=== PATIENT | female | born 1945 | race Caucasian/White ===

== ENCOUNTER 2016-08-29 05:58 | Day surgery (SDC) | payer MEDICARE ==
[2016-08-29] VITALS (13 sets, daily range): BP systolic 71–123; BP diastolic 38–66; PULSE 46–60; RESP 8–18; O2SAT 98–100
[~2016-08-29] VITALS: Ht 162.6 cm; Wt 58.3 kg
[~2016-08-29 05:58] MED LIST: ASPI-973 PO; ATRV10T PO; CALC-952 PO; CHOL200047 PO; ESTR42.52 VG; LISI1TAB7 PO; RANI300T4 PO; primidone
[2016-08-29] MEDS ORDERED: Dexamethasone 4 mg/mL Inj ONE (05:59)
[2016-08-29] MEDS ORDERED: MetoCLOpramide 5 mg/mL 2 mL Inj ONE (05:59)
[2016-08-29] MEDS ORDERED: fentaNYL-PF 50 mCg/mL 2 mL Inj ONE (05:59)
[2016-08-29] MEDS ORDERED: Propofol 10,000 mCg/mL 20 mL Inj ONE (05:59)
[2016-08-29] MEDS ORDERED: Ondansetron 2 mg/mL 2 mL Inj ONE (05:59)
[2016-08-29] MEDS: Lactated Ringer's 1,000 ML IV SCH ×3 (06:00→09:25)
--- NOTE | 2016-08-29 07:16 | PCM.HPANE ---
Patient Data Surgeon Admitting Provider: Attending Provider:Burt Hernandez MD Primary Care Physician:Cesar Lebron MD Other Provider:Anu Reevesingham Anesthesia Reason for Visit Left Flank Mass Ht/WT & BMI Height (Feet): 5 Height (Inches): 4.00 Weight (Kilograms): 58.3 Body Mass Index 21.00 Allergies Coded Allergies: nystatin (Verified Allergy, Unknown, 08/25/16) Uncoded Allergies: ADHESIVE BANDAGES (Allergy, Unknown, 08/25/16) CHLOROPRENE (Allergy, Unknown, 08/25/16) Past Anesthesia History Anesthesia History: Positive for:: Anesthesia Reactions (severe nausea after each procedure), Denies:: Abnormal Airway, Difficult Intubation, Fam Anesthesia Reaction Diabetes History Hx Diabetes?: No Current Bedside Blood Glucose: 98 MRSA MRSA: Yes (son hospitalized for MRSA- had sore at same time-treated as same) Medications Blood Thinner: Aspirin Hypertension Medication: Yes Home Meds Incl Beta Ric: No Reported Medications Cholecalciferol (Vitamin D3) (Vitamin D3)2,000 Unit Capsule2,000 Unit PO DAILY 08/25/16 Ranitidine 300 Mg [id number] Mg PO DAILY Ref 0 08/25/16 [primidone] No Conflict Check40 Mg HS 08/25/16 Lisinopril / HCTZ 10-12.5 mg 1 Each Tablet1 Each PO DAILY Ref 0 08/25/16 Estradiol (Estrace)42.5 Gm Cream.appl1 G VG WEEKLY #1 TUBE Ref 0 08/25/16 Calcium Carbonate/Vitamin D3 (Calcium 500 mg Chewable Tablet)1 Each Tab.chew1 Each PO DAILY 08/25/16 Atorvastatin (Lipitor)10 Mg Tab10 Mg PO DAILY Ref 0 08/25/16 Aspirin 81 Mg Sveypl73 Mg PO DAILY Ref 0 08/25/16 History History of ENT Problems?: Yes HEENT History: Positive for:: Cataracts (bilateral ) Sinus Problem (occasional post nasal drip) Denies:: Abnormal Airway Difficult Intubation Dysphagia Glaucoma Hearing Problem TMJ Denture Type: None Teeth Condition: Within Normal Limits Hx of Heart Problems?: Yes Cardiovascular History: Positive for:: Hypertension Irregular Heartbeat (occ PVCs, RBBB) Denies:: AICD Heart Murmur Pacemaker Peripheral Vascular Hx of Respiratory Problem?: No Respiratory History: Denies:: Asthma COPD Emphysema Oxygen Administration Pneumonia Tuberculosis Use of C-PAP Machine Use of Inhalers / NEBS Hx Neurologic Problems?: No Neurological History: Denies:: Alzheimer's Disease CVA Headaches Multiple Sclerosis Parkinson's Disease Seizures TIA Other Neurological Pertinent: history of botox injections for toritcollis- pt states this is now resolved Hx of GI Problems?: Yes Gastrointestinal History: Positive for:: Gastroesphageal Reflux Heartburn Hx of Problems?: No Genitourinary History: Denies:: HX of Hemodialysis Kidney Stones Urinary Tract Infection Female Hx: Positive for:: Problems with Breasts? (breast bx benign) Denies:: Currently Skin History: Positive for:: History Skin Disorders? (left flank mass- current admission problem) Denies:: Pressure Ulcers Hx Musculoskeletal Problems?: Yes Musculoskeletal History: Positive for:: Back Injury Degenerative Joint Osteoarthritis Denies:: Fibromyalgia Joint Replacement Systemic Lupus Hx of Psycho/Social Problems?: No Psycho Social History: Denies:: Anxiety Bipolar Disorder Hx Depression Suicide Attempt Hx Surgeries?: Yes (breast augmentation, cataract, tonsil, D+C) Hx Any Other Health Problems?: Yes Other History: Denies:: Cancer Thyroid Disease History Blood Transfusions: Positive for:: Accept Blood Products? Denies:: Blood Transfusions Hx Diabetes: NoBedside Blood Glucose: 98 Hx Alcohol Use: YesAlcoholic Drinks Per Day: 3-4 drinks weeklyHx Substance Use : NoHave You Smoked inLast 12 mo: No Stop/Bang S-Snoring: Do You Snore Loudly: No T-Tired: feel tired, fatigued: No O-Obsered: Observed not breath: No P-Blood Pressure: treated: Yes B- Body Mass Index > 35 kg/m2: No A- Age over 50: Yes N- Neck Large Circumference: No G- Gender Male: No JENNIFER Total Score: 2 Risk Assessment Category Category 1A: Patient has history of documented sleep apnea, and HAS NOT received any narcotic, sedative or anesthesia administration during this stay. Category 1B: Patient has history of documented sleep apnea, and HAS received any narcotic , sedative or anesthesia administration during this stay Category 2: Patient has SUSPECTED Obstructive Sleep Apnea, and HAS received any narcotic , sedative or anesthesia administration during this stay. Category 3: Patient has SUSPECTED Obstructive Sleep Apnea and HAS NOT received narcotic, sedative or anesthesia administration during this stay. Category 4: Outpatient in Procedural Areas with known sleep apnea or who screen positive for High Risk via the STOP/BANG questionnaire. Exam Exam Vital Signs Vital Signs Date Time Temp Pulse Resp B/P Pulse Ox O2 Delivery O2 Flow Rate FiO2 08/29/16 06:43 36.2 52 18 123/66 98 Room Air General Appearance: Alert, Oriented X3, Cooperative HEENT/AIRWAY: MP 2 Lungs: Clear to Auscultation, Normal Air Movement Heart: Exam Unremarkable, Regular Rate/Rhythm Meds/Labs/Diagnostics Admission Meds Current Medications Lactated Ringer's (Lr) 1,000 ml @ 120 mls/hr Q8H20M IV Last administered on t 06:00; Start 08/29/16 at 05:00; Stop 08/29/16 at 13:19 Bedside Blood Glucose: 98 Plan Impression Patient chart reviewed, patient interviewed and anesthestic plan with risks, benefits, and alternatives discussed, and informed consent obtained. ASA Physical Status: ASA2 Mod Systemic Disease Anesthetic Plan: GA Bene/Risks/Altern/Consents: Yes HP Complete Prior to Induction: Yes Rick Booth MD August 29, 2016 07:16
[2016-08-29] MEDS ORDERED: Lactated Ringer's 1,000 ML IV SCH (07:35)
[2016-08-29] MEDS ORDERED: EPHEDrine Sulfate 50 mg/mL Inj IVPUSH PRN (07:35)
[2016-08-29] MEDS ORDERED: fentaNYL-PF 50 mCg/mL 2 mL Inj IVPUSH PRN (07:35)
[2016-08-29] MEDS ORDERED: Ondansetron 2 mg/mL 2 mL Inj IVPUSH PRN (07:35)
[2016-08-29] MEDS ORDERED: HYDROmorphone 1 mg/mL Inj IVPUSH PRN (07:35)
[2016-08-29] MEDS ORDERED: Phenylephrine 10,000 mCg/mL Inj IVPUSH PRN (07:35)
[2016-08-29] MEDS ORDERED: Lactated Ringer's 500 ML IV PRN (07:35)
[2016-08-29] MEDS ORDERED: MetoCLOpramide 5 mg/mL 2 mL Inj IVPUSH PRN (07:35)
[2016-08-29] MEDS ORDERED: Dexamethasone 4 mg/mL Inj IVPUSH PRN (07:35)
[2016-08-29] MEDS ORDERED: Bupivacaine-MPF 0.5% 30 mL Inj INFILTRATE ONE (08:27)
[2016-08-29] MEDS ORDERED: HYDROcodone-APAP 5-325 mg Tablet PO PRN (08:45)
[2016-08-29] MEDS ORDERED: Phenylephrine/NS-PF 100 mCg/mL 5 mL Syringe IVPUSH ONE (08:49)
--- NOTE | 2016-08-29 08:52 | PCM.ANEP1 ---
Post Anesthesia Phase 1 PACU Phase 1 Assessment Vital Signs Vital Signs Date Time Temp Pulse Resp B/P Pulse Ox O2 Delivery O2 Flow Rate FiO2 08/29/16 08:47 36.5 55 18 78/39 99 Simple Mask 8 08/29/16 06:43 36.2 52 18 123/66 98 Room Air Anesthetic Administered: GA Level of Alertness: Sleeping, hard to arouse MORALES's with Equal Strength: Yes Pain: No Nausea or Vomiting: No Cardiovascular Function and Hy: Yes Oxygen Delivery: Simple Mask Lungs: Clear to Auscultation, Normal Air Movement Dermatome Level: Full Sensation Complications: No Comments Sedate on arrival , BP treated with fluids and phenylephrine as she was waking up Rick Booth MD August 29, 2016 08:51
--- NOTE | 2016-08-29 09:09 | OP ---
[address] [address] OPERATIVE REPORT PATIENT: SAUNDRA BATES : 1945 MR#: [id number] ADMIT: 08/29/2016 JOB ID: [id number] DATE OF SURGERY: 08/29/2016 PREOPERATIVE DIAGNOSIS(ES): Symptomatic left flank mass. POSTOPERATIVE DIAGNOSIS(ES): Symptomatic left flank mass. PROCEDURE: Excision 6.0 x 3.8 x 2 cm left flank mass. SURGEON: Burt Hernandez MD GLASS BULB MACHINE ADJUSTER: Izabella Gar PA-C INDICATIONS: A 71-year-old female, who has a left flank mass that has been present for some time, slowly growing and causes localized pain and discomfort. Four years ago while living in [place], she had an ultrasound that demonstrated a 3.9 x 0.8 x 0.2 soft tissue mass. After discussing options with the patient, it was elected to proceed with excision. FINDINGS: She had a 6.0 x 3.8 x 2 cm, fatty tumor, grossly consistent with a lipoma. It was completely excised. It was submitted to Pathology. DESCRIPTION OF PROCEDURE: At the beginning and end of the operation, the SCOAP checklist was completed. She received an LMA anesthetic. She is placed in a semi-right lateral decubitus position supported by a body wedge. Using ChloraPrep, she was prepped and draped in the usual fashion. After completing the time-out, this incision was designed and infiltrated with 0.5% plain bupivacaine. Dissection was then carried down through subcutaneous tissue and the mass readily identified. It was lobulated and was removed with sharp dissection, using cautery for hemostasis. It was submitted to Pathology. The wound was then closed with running subcutaneous 3-0 Vicryl, running subcuticular 4-0 Vicryl and Dermabond. The estimated blood loss was less than 5 cc. No apparent complications. The final sponge, needle, and instrument counts were announced as correct, and the patient was returned to the recovery room in stable condition. Critical assistance provided by Izabella Gar PA-C.
--- NOTE | 2016-08-30 15:17 | PATH ---
SURGICAL PATHOLOGY Attending Physician:Narinder Collins CASE STATUS: Signed Out PATIENT NAME: SAUNDRA BATES PID: [id number] : 1945 DATE COLLECTED:08/29/2016 22:24 SPECIMEN: Soft Tissue Mass, Biopsy CLINICAL HISTORY: LEFT FLANK MASS 1). LEFT FLANK MASS FINAL DIAGNOSIS: 1.SOFT TISSUE MASS, LEFT FLANK: LIPOMA. NO EVIDENCE OF MALIGNANCY. ICD10 CODE D17.9 GROSS DESCRIPTION: The specimen is received in one formalin filled container labeled with the patient's name, sublabeled "left flank mass" and consists of a light yellow-raphael portion of adipose tissue which measures 4.0 x 3.5 x 1.0 CM. The specimen is inked blue. 3 medical detail representative sections are submitted in 2 cassettes. 08/30/2016 [facility] MICRO DESCRIPTION: See diagnosis. ICD-9 CODES: CPT CODES: 1: 23234 Electronically Signed Out Mitchell Grimes MD [facility] Pathology [facility] [address], [place] [address] Technical component performed at [facility], [facility] [address], [place], [address]
== END 2016-08-29 23:59 | disposition home or self-care (01) ==
LOC: SAS 05:58
PROVIDERS: ATTEND Surgery
DX: D17.5 Benign lipomatous neoplasm of intra-abdominal organs (principal); I10 Essential (primary) hypertension; K21.9 Gastro-esophageal reflux disease without esophagitis; R12 Heartburn; Z79.82 Long term (current) use of aspirin; Z79.899 Other long term (current) drug therapy
CPT/HCPCS: 22903; J2370; J7120